=== PATIENT | male | born 1985 | race African-American/Black ===

== ENCOUNTER 2017-04-11 19:24 | Emergency (ER) | payer OTHER ==
[~2017-04-11] VITALS: Ht 175.3 cm; Wt 70.3 kg
[2017-04-11 19:38] VITALS: BP 154/97
[2017-04-11] MEDS ORDERED: IBUPROFEN 800800 M1 PO (20:10)
== END 2017-04-11 20:16 | disposition home or self-care (01) ==
LOC: ER 19:24
DX: S16.1XXA Strain of muscle, fascia and tendon at neck level, initial encounter (principal); F10.99 Alcohol use, unspecified with unspecified alcohol-induced disorder; V53.5XXA Driver of pick-up truck or van injured in collision with car, pick-up truck or van in traffic accident, initial encounter; Y93.I9 Activity, other involving external motion; Y92.89 Other specified places as the place of occurrence of the external cause; Y99.8 Other external cause status